=== PATIENT | male | born 1970 | race Caucasian/White ===

== ENCOUNTER → 2016-08-04 | Outpatient (CLI) | payer OTHER ==
--- NOTE | 2016-08-04 10:45 | REP ---
LUMBAR SPINE, THREE VIEWS: HISTORY: Back pain. There is no acute fracture or subluxation. The L3-4 and L4-5 intervertebral discs are decreased in height consistent with disc degeneration. An anterior osteophyte is present on L2. There is minimal scoliosis convex to the right. IMPRESSION: Degenerative change as described above. Signed by Andrea Lopez MD 08/04/2016 10:47 A
== END ==
LOC: M RAD 09:32
PROVIDERS: ATTEND Family Medicine Addiction Medicine
DX: M25.78 Osteophyte, vertebrae (principal); M54.5 Low back pain

== ENCOUNTER → 2020-11-05 | Outpatient (CLI) | payer MEDICAID, OTHER ==
--- NOTE | 2020-11-05 15:36 | REP ---
INDICATION: LUMBAGO WITH SCIATICA, RIGHT SIDE. COMPARISON: 08/04/2016. TECHNIQUE: Five views lumbosacral spine. FINDINGS: There is no compression fracture or malalignment, with normal lumbar lordosis. There is mild disc space narrowing at L1-2, L4-5, at L5-S1. There is sclerosis at the facets of L5-S1. The posterior elements are intact. There is mild curvature toward the right. IMPRESSION: Mild degenerative changes. <Electronically signed by Gregg Calhoun > 11/05/20 [id number]
== END ==
LOC: M ADAMS 14:49
PROVIDERS: ATTEND Physician Assistant
DX: M51.36 Other intervertebral disc degeneration, lumbar region (principal); M51.37 Other intervertebral disc degeneration, lumbosacral region

== ENCOUNTER → 2020-11-05 | Outpatient (REF) | payer MEDICAID, OTHER ==
[2020-11-05 16:53] LABS: HEMATOCRIT 50.6 % (42.0-52.0); MEAN CORPUSCULAR HGB CONC 33.6 g/dl (32.0-36.5); MEAN CORPUSCULAR VOLUME 95.3 fl (80.0-96.0); PLATELET COUNT, AUTOMATED 285 10^3/uL (150-450); RED BLOOD COUNT 5.31 10^6/uL (4.30-6.10)
[2020-11-05 17:22] LABS: ALBUMIN 4.1 GM/DL (3.2-5.2); ALT/SGPT 24 U/L (12-78); BILIRUBIN,TOTAL 0.5 MG/DL (0.2-1.0); BLOOD UREA NITROGEN 22 MG/DL (7-18); CALCIUM LEVEL 8.9 MG/DL (8.5-10.1); CARBON DIOXIDE LEVEL 27 MEQ/L (21-32); CHLORIDE LEVEL 107 MEQ/L (98-107); CHOLESTEROL LEVEL 148 MG/DL (<200); CHOLESTEROL RISK RATIO 2.055 (<5); CREATININE FOR GFR 1.13 MG/DL (0.70-1.30); GLOMERULAR FILTRATION RATE > 60.0 (>60); GLUCOSE, FASTING 72 MG/DL (70-100); HDL CHOLESTEROL 72 MG/DL (>40); LDL CHOLESTEROL 65 MG/DL (<100); NON-HDL-C 76 MG/DL; POTASSIUM SERUM 4.5 MEQ/L (3.5-5.1); SODIUM LEVEL 138 MEQ/L (136-145); THYROID STIMULATING HORMONE 0.702 uIU/ML (0.358-3.740); TOTAL PROTEIN 7.1 GM/DL (6.4-8.2); TRIGLYCERIDES LEVEL 56 MG/DL (<150)
[2020-11-05 18:02] LABS: TOTAL 25(OH) VITAMIN D 21.8 NG/ML (30.0-100.0)
== END ==
LOC: M SFHCADAM 14:45
PROVIDERS: ATTEND Physician Assistant
DX: M54.41 Lumbago with sciatica, right side (principal); Z00.00 Encounter for general adult medical examination without abnormal findings

== ENCOUNTER → 2021-02-05 | Outpatient (REF) | payer MEDICAID | LOC: M SFHCADAM 11:43 | PROVIDERS: ATTEND Physician Assistant | DX: Z00.00 Encounter for general adult medical examination without abnormal findings (principal) ==

== ENCOUNTER → 2021-11-19 | Outpatient (REF) | LOC: M PLALAB 14:12 | PROVIDERS: ATTEND Internal Medicine | DX: M54.9 Dorsalgia, unspecified (principal) ==

== ENCOUNTER → 2022-08-21 | Outpatient (REF) | payer MEDICAID, OTHER ==
[2022-08-21 13:13] LABS: ALBUMIN 4.6 G/DL (3.2-5.2); ALKALINE PHOSPHATASE 91 U/L (46-116); ALT/SGPT 30 U/L (7.0-40); AST/SGOT 43 U/L (<34); BILIRUBIN,TOTAL 0.8 MG/DL (0.3-1.2); BLOOD UREA NITROGEN 12 MG/DL (9-23); CALCIUM LEVEL 9.2 MG/DL (8.5-10.1); CARBON DIOXIDE LEVEL 30 MMOL/L (20-31); CHLORIDE LEVEL 104 MMOL/L (98-107); CHOLESTEROL LEVEL 129 MG/DL (<200); GLOMERULAR FILTRATION RATE > 60.0 (>60); GLUCOSE, FASTING 71 MG/DL (60-100); HDL CHOLESTEROL 40.2 MG/DL (>40); LDL CHOLESTEROL 67.2 MG/DL (<100); NON-HDL-C 88.8 MG/DL; SODIUM LEVEL 138 MMOL/L (136-145); TOTAL PROTEIN 6.7 G/DL (5.7-8.2); TRIGLYCERIDES LEVEL 108 MG/DL (<150)
[2022-08-21 13:14] LABS: TOTAL 25(OH) VITAMIN D 86.1 NG/ML (20.0-100.0)
[2022-08-21 13:15] LABS: BASO # 0.1 10^3/uL (0.0-0.2); BASO % 1.3 % (0.0-1.0); EOS # 0.4 10^3/uL (0.0-0.5); HEMATOCRIT 43.4 % (42.0-52.0); HEMOGLOBIN 14.9 g/dl (13.5-17.5); LYMPH # 1.9 10^3/uL (1.5-5.0); LYMPH % 22.8 % (24.0-44.0); MEAN CORPUSCULAR HEMOGLOBIN 31.4 pg (27.0-33.0); MEAN CORPUSCULAR HGB CONC 34.3 g/dl (32.0-36.5); MEAN CORPUSCULAR VOLUME 91.4 fl (80.0-96.0); MONO % 12.3 % (2.0-8.0); NEUTROPHILS # 4.9 10^3/uL (1.5-8.5); NEUTROPHILS % 58.4 % (36.0-66.0); PLATELET COUNT, AUTOMATED 260 10^3/uL (150-450); RED BLOOD COUNT 4.75 10^6/uL (4.30-6.10); THYROID STIMULATING HORMONE 1.116 uIU/ML (0.55-4.78); WHITE BLOOD COUNT 8.5 10^3/uL (4.0-10.0)
== END ==
LOC: M SFHCADAM 10:43
PROVIDERS: ATTEND Physician Assistant Medical
DX: I10 Essential (primary) hypertension (principal); E55.9 Vitamin D deficiency, unspecified; F81.9 Developmental disorder of scholastic skills, unspecified; R45.4 Irritability and anger

== ENCOUNTER → 2022-09-24 | Outpatient (CLI) | payer MEDICAID, OTHER | LOC: M RAD 07:58 | PROVIDERS: ATTEND Physician Assistant Medical | DX: R79.89 Other specified abnormal findings of blood chemistry (principal); N13.30 Unspecified hydronephrosis; N26.1 Atrophy of kidney (terminal) ==

== ENCOUNTER → 2022-09-25 | Outpatient (CLI) | payer OTHER | LOC: M WHC 07:27 | PROVIDERS: ATTEND Physician Assistant Medical | DX: N26.1 Atrophy of kidney (terminal) (principal) ==

== ENCOUNTER → 2022-10-29 | Outpatient (CLI) | payer OTHER ==
[~2022-10-29] MED LIST: ISOVUE-370 76% 100ML VIAL As Ordered ONE
== END ==
LOC: M RAD 08:35
PROVIDERS: ATTEND Physician Assistant
DX: N13.30 Unspecified hydronephrosis (principal); N26.1 Atrophy of kidney (terminal)
CPT/HCPCS: 74178; Q9967

== ENCOUNTER → 2023-06-04 | Outpatient (CLI) | payer OTHER, MEDICAID | LOC: M ADAMS 09:45 | PROVIDERS: ATTEND Physician Assistant Medical | DX: M54.41 Lumbago with sciatica, right side (principal) ==

== ENCOUNTER → 2023-11-25 | Outpatient (REF) | LOC: M PLAIMG 09:31 | PROVIDERS: ATTEND Internal Medicine | DX: M54.50 Low back pain, unspecified (principal); M51.36 Other intervertebral disc degeneration, lumbar region; M51.37 Other intervertebral disc degeneration, lumbosacral region ==

== ENCOUNTER → 2024-03-03 | Outpatient (CLI) | payer OTHER, MEDICAID | LOC: M RAD 07:29 | PROVIDERS: ATTEND Physician Assistant Medical | DX: F17.210 Nicotine dependence, cigarettes, uncomplicated (principal); Z53.9 Procedure and treatment not carried out, unspecified reason ==